=== PATIENT | female | born 1955 | race Caucasian/White ===

== ENCOUNTER 2016-05-20 20:54 | Observation (INO) | payer OTHER ==
[~2016-05-20] VITALS: Ht 172.7 cm; Wt 63.3 kg
[2016-05-20 21:49] VITALS: BP 144/82; PULSE 94; RESP 16; O2SAT 98
[2016-05-20] MEDS ORDERED: BACL10TA PO (21:56)
[2016-05-20] MEDS ORDERED: PRAV10TA2 PO (21:56)
[2016-05-20] MEDS ORDERED: DIAZ2TAB2 PO (21:56)
[2016-05-20] MEDS ORDERED: DALF10TA PO (21:56)
[2016-05-20] MEDS ORDERED: CYAN500 PO (21:56)
[2016-05-20] MEDS ORDERED: PANT40TA3 PO (21:56)
[2016-05-20] MEDS ORDERED: FISH1CAP15 PO (21:56)
[2016-05-20] MEDS ORDERED: CHOL500051 PO (21:56)
[2016-05-20 22:23] LABS: BASOPHILS % (AUTO) 0.1 % (0-3); EOSINOPHILS % (AUTO) 0.1 % (0-5); MONOCYTES % (AUTO) 6.2 % (4-12); Mean Corpuscular Hemoglobin 28.9 pg (27.0-35.0); NEUTROPHILS % (AUTO) 86.3 % (40-74); Platelet Count 235 bil/L (150-400)
[2016-05-20] MEDS ORDERED: Ondansetron 2 mg/mL 2 mL Inj IVPUSH PRN (23:10)
[2016-05-20] MEDS ORDERED: HYDROmorphone 0.5 mg/0.5 mL iSecure Syringe IVPUSH PRN (23:10)
--- NOTE | 2016-05-20 23:15 | ED.REPORT ---
HPI-Abd Pain F 40 and Over Date of Service May 20, 2016 ED Provider: Calixto Xiong MD Pt is a 60 y.o. female with a hx of MS who presents to the ED c/o RLQ pain rated 8/10 onset yesterday. Pt states that the pain radiates to her back and is exacerbated by movement. Associated fever (100F). She denies nausea and vomiting. Pt also denies a hx of abdominal surgery or diverticulitis. Nursing Notes Stated Complaint: ABDOMINAL/BACK PAIN Chief Complaint: Female Abdominal Pain Nursing Notes Reviewed: Yes Allergies: Coded Allergies: TAPE (Verified Allergy, Mild, 05/20/16) Sulfa (Sulfonamide Antibiotics) (Verified Allergy, Unknown, 05/20/16) latex (Verified Allergy, Unknown, 05/20/16) Scheduled Baclofen (Baclofen) 10 Mg Tablet 10 MG PO 5XD Cyanocobalamin (Vitamin B12) 500 Mcg Tablet 1,000 MCG PO DAILY Dalfampridine (Ampyra) 10 Mg Tablet 10 MG PO BID Pantoprazole DR (Pantoprazole DR) 40 Mg Tablet.dr 40 MG PO DAILY Pravastatin (Pravastatin) 10 Mg Tablet 10 MG PO HS Scheduled PRN Diazepam (Diazepam) 2 Mg Tablet 4 MG PO HS PRN PRN For Anxiety Miscellaneous Medications Cholecalciferol (Vitamin D3) (Vitamin D) 5,000 Unit Capsule 5,000 UNIT PO Fish Oil/Dha/Epa (Fish Oil 1,200 mg Fish Oil) 1 Each Capsule 1 EACH PO General Time Seen by MD: 22:50 Chief Complaint Abdominal pain Hx Obtained From: Patient Arrived By: Walk-in Sudden in Onset?: Yes Onset Occurred: Yesterday Symptom Duration: Since onset Location: : RLQ Quality: Painful Radiation: : Back Severity: Current: Pain level 8 out of 10 Past Medical History Past Medical History MS Past Surgical History Uterine Ablation Fibroids Lumpectomy Reports: Tonsillectomy Social History Other Social History: Ambulatory Status Independent Review of Systems Constitutional: Reports: Fever (100F) GI: Reports: Abdominal pain, Denies: Nausea, Vomiting Musculoskeletal: Reports: Back pain Complete sys rev & neg: except as marked. Neurologic: Reports: Problem walking (due to pain) Physical Exam Vital Signs Vital Signs (First) Date Time Temp Pulse Resp B/P Pulse Ox O2 Delivery O2 Flow Rate FiO2 05/20/16 21:49 36.7 94 16 144/82 98 Room Air Initial VS: Reviewed, Vital signs normal Head / Eyes: Atraumatic, Normocephalic Extremities: Vascular intact, Neuro intact Skin: Warm, Dry, No cyanosis Neurologic: Alert, Oriented, Nonfocal Psychiatric: Mood/affect normal, Behavior normal, Normal thought content General/Constitutional: Awake, Alert, No acute distress, Well appearing, Well developed, Well hydrated, Well nourished, Not toxic appearing Respiratory / Chest: Atraumatic, Breath sounds NL, Breath sounds = bilat, No respiratory distress Cardiovascular: Heart rate NL, Regular rhythm, Heart sounds NL, Peripheral circulation NL Abdomen: Atraumatic, Soft Tenderness/Guarding/Rebound: Positive: Guarding involuntary, McBurney's point tender, Rebound diffuse, Tender RLQ... Back: Atraumatic Interpretation & Diagnostics Lab Results Interpretation Result Diagram: 05/20/165 05/20/16 2215 Test 05/20/16 22:15 05/20/16 23:06 White Blood Count 16.1th/mm3 (3.8-10.1) Red Blood Count 5.01mil/mm3 (3.90-5.20) Hemoglobin 14.5g/dL (12.0-15.6) Hematocrit 43.1% (35.0-46.0) Mean Corpuscular Volume 86.0fL (81-100) Mean Corpuscular Hemoglobin 28.9pg (27.0-35.0) Mean Corpuscular Hemoglobin Concent 33.6% (32.0-37.0) Red Cell Distribution Width 12.6% (12.3-15.4) Platelet Count 235bil/L (150-400) Neutrophils (%) (Auto) 86.3% (40-74) Lymphocytes (%) (Auto) 7.0% (14-46) Monocytes (%) (Auto) 6.2% (4-12) Eosinophils (%) (Auto) 0.1% (0-5) Basophils (%) (Auto) 0.1% (0-3) Sodium Level 140mEq/L (134-144) Potassium Level 4.2mEq/L (3.5-5.2) Chloride Level 100mEq/L (97-108) Carbon Dioxide Level 23mmol/L (18-29) Blood Urea Nitrogen 12mg/dL (6-24) Creatinine 0.71mg/dL (0.57-1.00) Estimat Glomerular Filtration Rate 121mL/min (>59) Glucose Level 129mg/dL (60-99) Calcium Level 9.6mg/dL (8.5-10.1) Magnesium Level 2.0mg/dL (1.6-2.6) Total Bilirubin 0.8mg/dL (0.0-1.2) Aspartate Amino Transf (AST/SGOT) 18U/L (0-50) Alanine Aminotransferase (ALT/SGPT) 28U/L (0-32) Alkaline Phosphatase 75U/L (25-150) Total Protein 7.3g/dL (6.4-8.4) Albumin 4.9g/dL (3.4-5.0) Lipase 19U/L (13-60) Hold Tillman Top Tube Received (Received) Hold Urine Received (Received) Lab Results Interpretation: Elevated white blood count CT Abd / Pelvis Interpretation CONCLUSION: Acute appendicitis ,with no intra-abdominal abscess or perforation. Radiologist: Emile Segal MD Re-Eval/Medical Decision Med Decision/Clinical Course 60-year-old female with a classic story for appendicitis found to have acute appendicitis on CT scan without complication. Source of Hx: Old records Re-Evaluation/Progress : Time of Eval: 00:05 Re-Evaluation/Progress Note: Pt rechecked. Pt is complaining of left leg cramping ivan to her MS. Will administer Valium. Discussed plan for admit, pt udnerstands and agrees with plan. Consultation : Referral / Consult Name: Mc Garcia MD Consulted With: Surgeon Call Returned at: 00:00 Note: Discussed pt condition. Recommends pt be NPO after midnight and started on abx. Accepts admit. Counseled Regarding: Diagnosis, Need for admission Discharge & Departure Primary Impression: Acute appendicitis Disposition: ADMITTED TO HOSPITAL Discharge Condition All VS Reviewed: Yes Condition: Improved Referrals: Vanda Meehan MD (PCP) Jorge Luis Attestation Portions of this note were transcribed by Jose Spencer. I, Dr. Xiong personally performed the history, physical exam and medical decision-making; I reviewed and confirmed the accuracy of the information in the transcribed note. Signed by: Jorge Luis Muniz, 05/21/16 and 0010. copies to: Vanda Meehan MD, Calixto Bahena MD May 20, 2016 23:14 JOSE SPENCER May 20, 2016 23:25
[2016-05-21] VITALS (12 sets, daily range): BP systolic 97–129; BP diastolic 51–75; PULSE 50–89; RESP 7–20; O2SAT 95–100
[2016-05-21] MEDS ORDERED: Piperacillin-Tazo 3.375 Gm Inj 3.375 GM in Dextrose 5% Minibag Plus 50 ML IV ONE ×2 (00:05→13:40)
[2016-05-21] MEDS ORDERED: Rocuronium 10 mg/mL 5 mL Inj ONE (00:27)
[2016-05-21] MEDS ORDERED: Propofol 10,000 mCg/mL 20 mL Inj ONE (00:27)
[2016-05-21] MEDS ORDERED: Dexamethasone 4 mg/mL Inj ONE (00:27)
[2016-05-21] MEDS ORDERED: fentaNYL-PF 50 mCg/mL 2 mL Inj ONE (00:27)
[2016-05-21] MEDS ORDERED: MetoCLOpramide 5 mg/mL 2 mL Inj ONE (00:27)
[2016-05-21] MEDS: HYDROmorphone 0.5 mg/0.5 mL iSecure Syringe IVPUSH PRN ×4 (02:10→15:44)
--- NOTE | 2016-05-21 03:34 | NUR ---
Admit Pt admitted from ER to [facility] Rm 1006 at 0020. Pt alert and oriented x4, SHIRLEY, pt reported that earlier she had intense left leg spasms and she was unable to move her left leg. This is related to her MS. Pt initially reported minimal aching pain to right abdomen 2/10 and then pain increased to 4/10 and pt was given 0.5mg IV Dilaudid. On reassessment, pt sleeping and appears comfortable. Zosyn hung per orders. Pt is NPO. Pt oriented to room and call light.
--- NOTE | 2016-05-21 05:28 | NUR ---
Pain Pt reporting 4/10 pain this morning and requested half of the dose of IV Dilaudid given earlier. Pt given 0.25mg IV Dilaudid. Pt did get up to the BR with SBA to urinate and is having some weakness in legs due to MS. Addendum: 05/21/16 at 0734 by DESIREE MCCAULEY RN Meds Call made to MD this morning to order MS medications, Ampyra and Baclofen (see med rec). Using pt own Ampyra, verified with pharmacy. to take other meds home.
[2016-05-21] MEDS ORDERED: BACL20TA PO (06:21)
[2016-05-21] MEDS: AMPYRA 10 MG PO SCH ×2 (06:51→19:31)
[2016-05-21] MEDS: Dextrose 5% Lactated Ringer's 1,000 ML IV SCH ×3 (06:53→23:01)
[2016-05-21] MEDS: Ondansetron 2 mg/mL 2 mL Inj IVPUSH PRN ×2 (07:45→17:17)
--- NOTE | 2016-05-21 08:04 | DRSVH ---
PROCEDURE: CT ABDOMEN AND PELVIS WITH CONTRAST ([id number]) INDICATIONS: RLQ abd pain, elev WBC TECHNIQUE: After the administration of intravenous contrast, 5 mm thick sections acquired from the diaphragm to the symphysis. 5 mm coronal and sagittal reformats were acquired. For radiation dose reduction, the following was used: automated exposure control, adjustment of mA and/or kV according to patient siz e. COMPARISON: None. FINDINGS: Image quality: Excellent. ABDOMEN: Lung bases: Lung bases are clear. Heart size is normal. Solid organs: Liver and spleen are normal in size and enhancement. Gallbladder is within normal yung its. Biliary system is non dilated. Pancreas enhances normally. No adrenal nodules. Kidneys demon strate normal size and enhancement, without hydronephrosis. Peritoneum and bowel: Bowel loops demonstrate normal wall thickness and caliber. No free fluid or a ir. The appendix is enlarged 1.1 cm in diameter. Inflammatory changes and free fluid noted adjacent t o the appendix. No appendicolith identified. No periappendiceal abscess or free air. Nodes and vessels: No retroperitoneal or mesenteric adenopathy by size criteria. Aorta and inferior vena cava are normal in size. Scattered atherosclerotic ossification is noted in the abdominal and p elvic vasculature. Miscellaneous: No ventral hernias. PELVIS: Genitourinary: Bladder wall thickness is normal. Miscellaneous: No inguinal hernias or adenopathy. Bones: No suspicious bony lesions. No vertebral body compression fractures. Spine degenerative disc disease facet arthropathy are noted. IMPRESSION: Findings compatible with acute appendicitis. Dictated by: Piedad Francisco MD, PhD on 05/21/2016 at 8:01 Approved by: Piedad Francisco MD, PhD on 05/21/2016 at 8:02
--- NOTE | 2016-05-21 09:24 | HP ---
[address] [address] HISTORY AND PHYSICAL PATIENT: REBECCA BRUNO : 1955 MR#: [id number] ADMIT: 05/21/2016 JOB ID: [id number] CHIEF COMPLAINT: A 60-year-old lady with appendicitis seen in consultation at the request of Calixto Xiong MD and Mc Garcia MD. HISTORY OF PRESENT ILLNESS: The patient is a 60-year-old lady who presented to the emergency department last night with abdominal pain that was progressively getting worse over the last day. She woke up with pain at around 3 o'clock in the morning which was initially like a dull ache but just kept getting worse and she also had a low-grade fever. She did not have any nausea or vomiting. In the emergency department, she was evaluated with blood counts and a CT scan and was diagnosed with appendicitis and was admitted with IV antibiotics. At the time I saw her this morning, she has no abdominal pain unless with movement or palpation. OTHER MEDICAL PROBLEMS: Multiple sclerosis. PRIOR OPERATIONS: 1. Uterine ablation. 2. Laparoscopic resection of uterine fibroid. 3. Breast lumpectomy. 4. Tonsillectomy. SOCIAL HISTORY: She does not smoke. She is . 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 FAMILY HISTORY: No family history of cancer. Father had heart disease. REVIEW OF SYSTEMS: Twelve point review of systems negative other than the pertinent positives noted in the history of present illness and other medical problems. MEDICATIONS AT HOME: 1. Baclofen. 2. Pantoprazole. 3. Pravastatin. 4. Cyanocobalamin. 5. Diazepam p.r.n. ALLERGIES: Allergic to SULFA, TAPE and LATEX. INVESTIGATIONS: Labs from May 20, 2016: WBC 16.1, hemoglobin 14.5, platelet count 235. Creatinine 0.71. Glucose 129. Normal liver function studies. Albumin 4.9. IMAGING: CT abdomen and pelvis with contrast on May 20, 2016 showed appendix enlarged to 1.1 cm with inflammatory changes and free fluid adjacent to the appendix. No obvious abscess, all consistent with non perforated appendicitis. PHYSICAL EXAMINATION: A 60-year-old lady in no acute distress. BMI 21.2. Temperature 36.8, pulse 79, respiratory rate 20, blood pressure 105/66. Saturating 96% on room air. Eyes normal pupils, conjunctivae. Ears, nose, and throat normal external appearance. Neck: No lymphadenopathy or jugular venous distention. Respiratory: Normal effort, clear to auscultation. Cardiovascular: Regular rate and rhythm. Gastrointestinal: Focally tender in the right lower quadrant. Normal strength in extremities. Neurologic: No focal deficits. Psych: Alert, appropriate. Skin: Normal. ASSESSMENT AND PLAN: Acute appendicitis. Discussed the pathophysiology and treatment rationale and recommended continuing IV Zosyn and performing a laparoscopic appendectomy. After discussing the risks, benefits, and alternatives, she wished to proceed and we will proceed later today. YANIV
--- NOTE | 2016-05-21 13:10 | PCM.HPANE ---
Patient Data Surgeon Admitting Provider:Mc Garcia MD Attending Provider:Mc Garcia MD Primary Care Physician:Vanda Meehan MD Other Provider:Karma Pyle Anesthesia Reason for Visit Acute Appy Ht/WT & BMI Height (Feet): 5 Height (Inches): 8.00 Weight (Kilograms): 63.300 Body Mass Index 21.15 Allergies Coded Allergies: TAPE (Verified Allergy, Mild, 05/20/16) Sulfa (Sulfonamide Antibiotics) (Verified Allergy, Unknown, 05/20/16) latex (Verified Allergy, Unknown, 05/20/16) Past Anesthesia History Anesthesia History: Denies:: Anesthesia Reactions Diabetes History Hx Diabetes?: No MRSA MRSA: No Medications Reported Medications Baclofen 20 Mg [id number] Mg PO HS Ref 0 05/21/16 Fish Oil/Dha/Epa (Fish Oil 1,200 mg Fish Oil)1 Each Capsule1 Each PO 05/20/16 Diazepam 2 Mg Tablet4 Mg PO HS PRN For Anxiety Ref 0 05/20/16 Cyanocobalamin (Vitamin B12)500 Mcg Tablet1,000 Mcg PO DAILY 05/20/16 Cholecalciferol (Vitamin D3) (Vitamin D)5,000 Unit Capsule5,000 Unit PO 05/20/16 Dalfampridine (Ampyra)10 Mg [id number] Mg PO BID 05/20/[address] 40 Mg Tablet.dr40 Mg PO DAILY Ref 0 05/20/16 Baclofen 10 Mg [id number] Mg PO TID Ref 0 05/20/16 Pravastatin 10 Mg [id number] Mg PO HS Ref 0 05/20/16 History History of ENT Problems?: No Hx of Heart Problems?: No Cardiovascular History: Denies:: Congestive Heart Failure Hypertension Hx of Respiratory Problem?: No Respiratory History: Denies:: Tuberculosis Other Neurological Pertinent: multiple sclerosis Hx of GI Problems?: Yes Gastrointestinal History: Positive for:: Gastroesphageal Reflux Hx of Problems?: No Female Hx: Denies:: Currently Endometriosis Pelvic Inflammatory Problems with Breasts? Hx of Psycho/Social Problems?: Yes (one major panic attack) Hx Surgeries?: Yes (uterine ablation, fibroids, right lumpectomy (1978)) Hx Any Other Health Problems?: Yes Other History: Positive for:: Hospitalization Denies:: Cancer Thyroid Disease History Blood Transfusions: Positive for:: Accept Blood Products? Denies:: Blood Transfuse Reaction Blood Transfusions Hx Diabetes: No Hx Alcohol Use: NoHx Substance Use: No Stop/Bang Treated for Sleep Apnea?: No Do You Have a CPAP Machine?: No S-Snoring: Do You Snore Loudly: No T-Tired: feel tired, fatigued: Yes O-Obsered: Observed not breath: No P-Blood Pressure: treated: No B- Body Mass Index > 35 kg/m2: No A- Age over 50: Yes N- Neck Large Circumference: No G- Gender Male: No JOSE Total Score: 1 JOSE Risk Assessment: Low Risk, <3 Yes Risk Assessment Category Category 1A: Patient has history of documented sleep apnea, and HAS NOT received any narcotic, sedative or anesthesia administration during this stay. Category 1B: Patient has history of documented sleep apnea, and HAS received any narcotic , sedative or anesthesia administration during this stay Category 2: Patient has SUSPECTED Obstructive Sleep Apnea, and HAS received any narcotic , sedative or anesthesia administration during this stay. Category 3: Patient has SUSPECTED Obstructive Sleep Apnea and HAS NOT received narcotic, sedative or anesthesia administration during this stay. Category 4: Outpatient in Procedural Areas with known sleep apnea or who screen positive for High Risk via the STOP/BANG questionnaire. Exam Exam Vital Signs Vital Signs Date Time Temp Pulse Resp B/P Pulse Ox O2 Delivery O2 Flow Rate FiO2 05/21/16 11:47 36.7 65 18 97/60 97 Room Air 05/21/16 09:03 36.7 69 16 102/51 97 Room Air 05/21/16 05:12 36.8 79 20 105/66 96 Room Air General Appearance: Oriented X3 HEENT/AIRWAY: MP 2 Lungs: Normal Air Movement Heart: Regular Rate/Rhythm Meds/Labs/Diagnostics Admission Meds Current Medications Diazepam (Valium Inj) 2.5 mg ONCE ONCE IVPUSH Last administered on 05/21/16 00:08; Start 05/20/16 at 23:50; Stop 05/20/16 at 23:52; Status DC Baclofen 20 mg 20 mg ONCE ONCE PO Last administered on 05/21/16 00:08; Start 05/20/16 at 23:50; Stop 05/20/16 at 23:52; Status DC Piperacillin Sod/ Tazobactam Sod/ Dextrose/Water (Zosyn 3.375 Gm Inj/D5W Minibag Plus) 50 ml @ 100 mls/hr ONCE ONCE IV Last administered on 05/21/16 01:37; Start 05/21/16 at 00:05; Stop 05/21/16 at 00:34; Status DC Diazepam 2.5 mg 2.5 mg ONCE ONCE IVPUSH Last administered on 05/21/16 01:09; Start 05/21/16 at 00:35; Stop 05/21/16 at 00:36; Status DC Dextrose/Lactated Ringer's (D5 Lactated Ringer's) 1,000 ml @ 80 mls/hr [id number] IV Last administered on 05/21/16 06:53; Start 05/21/16 at 06:40 Baclofen (Lioresal) 10 mg 07,13,18 PO Last administered on 05/21/16 06:52; Start 05/21/16 at 07:00 Patient Own Medication (Patient's Own -> Oral Medication) 1 ea 07,19 PO Last administered on 05/21/16 06:51; Start 05/21/16 at 07:00 Labs Test 05/20/16 22:15 05/20/16 23:06 White Blood Count 16.1th/mm3 (3.8-10.1) Red Blood Count 5.01mil/mm3 (3.90-5.20) Hemoglobin 14.5g/dL (12.0-15.6) Hematocrit 43.1% (35.0-46.0) Mean Corpuscular Volume 86.0fL (81-100) Mean Corpuscular Hemoglobin 28.9pg (27.0-35.0) Mean Corpuscular Hemoglobin Concent 33.6% (32.0-37.0) Red Cell Distribution Width 12.6% (12.3-15.4) Platelet Count 235bil/L (150-400) Neutrophils (%) (Auto) 86.3% (40-74) Lymphocytes (%) (Auto) 7.0% (14-46) Monocytes (%) (Auto) 6.2% (4-12) Eosinophils (%) (Auto) 0.1% (0-5) Basophils (%) (Auto) 0.1% (0-3) Sodium Level 140mEq/L (134-144) Potassium Level 4.2mEq/L (3.5-5.2) Chloride Level 100mEq/L (97-108) Carbon Dioxide Level 23mmol/L (18-29) Blood Urea Nitrogen 12mg/dL (6-24) Creatinine 0.71mg/dL (0.57-1.00) Estimat Glomerular Filtration Rate 121mL/min (>59) Glucose Level 129mg/dL (60-99) Calcium Level 9.6mg/dL (8.5-10.1) Magnesium Level 2.0mg/dL (1.6-2.6) Total Bilirubin 0.8mg/dL (0.0-1.2) Aspartate Amino Transf (AST/SGOT) 18U/L (0-50) Alanine Aminotransferase (ALT/SGPT) 28U/L (0-32) Alkaline Phosphatase 75U/L (25-150) Total Protein 7.3g/dL (6.4-8.4) Albumin 4.9g/dL (3.4-5.0) Lipase 19U/L (13-60) Hold Tillman Top Tube Received (Received) Hold Urine Received (Received) Plan Impression Patient chart reviewed, patient interviewed and anesthestic plan with risks, benefits, and alternatives discussed, and informed consent obtained. ASA Physical Status: ASA3 Severe Disease Anesthetic Plan: GA Bene/Risks/Altern/Consents: Yes HP Complete Prior to Induction: Yes Bob Hernandez MD May 21, 2016 13:10
--- NOTE | 2016-05-21 13:21 | NUR ---
To OR Pt to OR at 1300. Pain well controlled per pt. Helped to void prior to transport and assessed for nausea which pt denied. Upon gurny arrival, pt reported mild nausea. WEIGHER OPERATOR aware and decision made to hold antiemetic until anesthesiologist had seen her. at bedside.
[2016-05-21] MEDS ORDERED: Lactated Ringer's 1,000 ML IV ONE (13:22)
[2016-05-21] MEDS ORDERED: Lactated Ringer's 500 ML IV PRN (13:34)
[2016-05-21] MEDS ORDERED: Lactated Ringer's 1,000 ML IV SCH (13:34)
[2016-05-21] MEDS ORDERED: EPHEDrine Sulfate 50 mg/mL Inj IVPUSH PRN (13:35)
[2016-05-21] MEDS ORDERED: MetoCLOpramide 5 mg/mL 2 mL Inj IVPUSH PRN (13:35)
[2016-05-21] MEDS ORDERED: Dexamethasone 4 mg/mL Inj IVPUSH PRN (13:35)
[2016-05-21] MEDS ORDERED: fentaNYL-PF 50 mCg/mL 2 mL Inj IVPUSH PRN (13:35)
[2016-05-21] MEDS ORDERED: Ondansetron 2 mg/mL 2 mL Inj IVPUSH PRN (13:35)
[2016-05-21] MEDS ORDERED: Phenylephrine 10,000 mCg/mL Inj IVPUSH PRN (13:35)
[2016-05-21] MEDS ORDERED: Bupivacaine 0.5% 50 mL Inj INFILTRATE ONE (13:48)
--- NOTE | 2016-05-21 13:54 | NUR ---
Social Work-attempted assessment: Data:EMR Reviewed. Pt is a 60 y/o female who was admitted on 05/21/16 for acute appy per H&P. Pt's insurance is [employer] and PCP is Vanda Meehan MD. SW attempted to see pt, but pt currently in the OR. SW to follow up post surgery to discuss discharge planning and complete advanced directive. SW will continue to follow. Assessment:Pt who is independent at baseline. Plan:Pt currently in the OR. SW to follow up tomorrow with pt to discuss discharge planning and complete advanced directive. SW will continue to follow. BRYCE Lopez
--- NOTE | 2016-05-21 14:27 | PCM.SURGPO ---
Immediate Operative Note Date of Surgery: May 21, 2016 Pre Operative Diagnosis Appendicitis Post Operative Diagnosis Appendicitis Procedure Laparoscopic Appendectomy Surgeon and Mold Finisher Surgeon: Mc Garcia MD Assistants: None Findings Non perforated Appendicitis Complications There were no periprocedural complications identified. Surgical Specimen Removed: Yes Specimen sent to Pathology: Yes Anesthetic Administered: GA Grafts, Implants: None Output, Estimated Blood Loss: 0 Blood Admin during surgery: No Attending Statement Dental Laboratory Manager listed was medically necessary for the successful completion of the case Yulisa Ochoa MD May 21, 2016 14:27
[2016-05-21] MEDS: HYDROmorphone 1 mg/mL Inj IVPUSH PRN ×2 (15:13→15:17)
--- NOTE | 2016-05-21 15:18 | PCM.ANEP2 ---
Post Anesthesia Evaluation ASA/CMS Post Anesthesia VS in Patient's Normal Range?: Yes Resp Stable; Airway Patent?: Yes CV Function & Hydration Stable: Yes Mental Status Recovered?: Yes Pain control Satisfactory?: Yes N/V Control Satisfactory?: Yes Bob Hernandez MD May 21, 2016 15:18
--- NOTE | 2016-05-21 15:18 | PCM.ANEP1 ---
Post Anesthesia Phase 1 PACU Phase 1 Assessment Date of Service: May 21, 2016 Vital Signs Vital Signs Date Time Temp Pulse Resp B/P Pulse Ox O2 Delivery O2 Flow Rate FiO2 05/21/16 15:06 58 10 124/70 97 Room Air 05/21/16 14:56 63 10 109/59 100 Simple Mask 10 05/21/16 14:50 50 9 115/64 100 Simple Mask 10 05/21/16 14:45 50 9 112/62 100 Simple Mask 10 05/21/16 14:38 37 52 8 112/53 100 Simple Mask 10 05/21/16 11:47 36.7 65 18 97/60 97 Room Air 05/21/16 09:03 36.7 69 16 102/51 97 Room Air Anesthetic Administered: GA Level of Alertness: Awake, talking Pain: No Pain Scale Score: 6 Nausea or Vomiting: No Oxygen Delivery: Room Air Lungs: Normal Air Movement Bob Hernandez MD May 21, 2016 15:18
--- NOTE | 2016-05-21 15:52 | OP ---
[address] [address] OPERATIVE REPORT PATIENT: REBECCA BRUNO : 1955 MR#: [id number] ADMIT: 05/21/2016 JOB ID: [id number] DATE OF SURGERY: 05/21/2016 PREOPERATIVE DIAGNOSIS(ES): Acute appendicitis. POSTOPERATIVE DIAGNOSIS(ES): 1. Acute non perforated appendicitis. 2. Free intra-abdominal body. SURGEON: Yulisa Ochoa MD. BLOCK CUTTER: Mandy Webb PA-C PROCEDURE PERFORMED: Laparoscopic appendectomy and excision of free intra-abdominal body. INDICATIONS: The patient is a 60-year-old lady who presents to our emergency department with 24 hours of abdominal pain and was found to have a white count of 16,[address] scan consistent with acute appendicitis and she was started on piperacillin and tazobactam, and after discussing the risks, benefits, and alternatives, she is here today for laparoscopic appendectomy. PROCEDURE DETAILS: She was placed in supine position. Underwent smooth induction of general anesthesia, had a Kwogn catheter placed. Abdomen was prepped and draped in the usual sterile fashion. Surgical time-out was undertaken using safety checklist, and all were in agreement. I began by making an infraumbilical incision in her old laparoscopic incision, entered the abdomen using combination of an Optiview trocar and open Koffi technique. Obtained pneumoperitoneum and then upsized to a 12 mm. I then placed two 5 mm ports under direct vision in the suprapubic location and left lower quadrant. I then identified the appendix which was obviously inflamed but not perforated. I divided the mesoappendix carefully with electrocautery with good hemostasis close to the appendix, and after getting down to the base of the appendix on the cecum, transected the base with a 45 mm Endo-RAQUEL stapler. After that I removed the appendix through the umbilical port site and suctioned all the fluid in the pelvis and the right lower quadrant free and evacuated the pneumoperitoneum and removed the ports and closed the umbilical port fascia with [id number] 0-Vicryl suture. Irrigated the umbilical wound and closed the incisions with 4-0 Monocryl subcuticular suture. Then Dermabond was applied as a dressing. Kwong catheter was removed. The patient was recovered from anesthesia and was taken to the recovery room in stable condition.
[2016-05-21] MEDS ORDERED: HYDROmorphone 0.5 mg/0.5 mL iSecure Syringe IVPUSH PRN (16:15)
--- NOTE | 2016-05-21 18:34 | NUR ---
Return from OR Pt returned to room 1006 at 1345, alert and oriented but drowsy. 3 lap sites with duoderm and no drainage. Nausea relieved by Zofran. K pad given for muscle tightness. at bedside.
[2016-05-22 00:11] VITALS: BP 120/69; PULSE 63; RESP 18; O2SAT 99
[2016-05-22 04:55] VITALS: BP 101/62; PULSE 61; RESP 18; O2SAT 97
--- NOTE | 2016-05-22 04:55 | NUR ---
MUSCLES/URINATION PT CONTINUED TO HAVE LEFT LEG RIGIDITY R/T MS. BACLOFEN NOT EFFECTIVE, REQUESTED VALIUM. GIVEN 1X DOSE OF VALIUM 4MG WITH + EFFECTS. PT WAS CONCERNED SHE HAD NOT URINATED DURING SHIFT, BLADDER SCAN DONE AT 140ML. PT ABLE TO URINATE 650ML BEFORE END OF SHIFT AND ANXIETY WAS RELIEVED PX CONTROLLED WITH MOTRIN
[2016-05-22] MEDS: AMPYRA 10 MG PO SCH (07:22)
[2016-05-22 09:23] VITALS: BP 103/63; PULSE 76; RESP 16; O2SAT 100
--- NOTE | 2016-05-22 11:15 | NUR ---
Social Work- Assessment and Readiness for Discharge Data: EMR reviewed. Pt is on day 1 of hospitalization for acute appy per H&P. Pt's insurance is [employer] [facility] and PCP is Vanda Meehan. SW met with pt's Kehinde ([phone]) at bedside, pt was asleep and did not wake during conversation. Pt resides with at home in [place] where she remains independent with ADLs. Pt uses no DME, drives. Pt has no DPOA on file, SW encouraged pt's to bring paperwork to the hospital. states he is DPOA. Pt to discharge home with to transport via POV. No anticipated discharge needs. SW will continue to follow. Assessment: [place]. Plan: Pt to discharge home with to transport via POV. No anticipated discharge needs. SW will continue to follow. BRYCE Taylor
--- NOTE | 2016-05-22 11:28 | PCM.DISURG ---
Surgical Discharge Instruction Date of Service May 22, 2016 Dates of Hospitalization Date of Hospital Admission May 21, 2016 at 00:26 Providers Admitting Physician: Mc Garcia MD Primary Care Physician: Vanda Meehan MD Attending Physician: Mc Garcia MD Discharge Diagnosis Post Operative diagnosis Appendicitis Diet Discharge Diet: No restrictions Activity Discharge Activity-General: Be up and about, No lifting >15 pounds for 2 weeks Dressing and Incisional Care Hygiene: May shower, DO NOT soak incision under water Follow Up Plan Follow-up Provider (F9): Yulisa Ochoa MD Follow-up appointment: Weeks (2) Call your provider for: Fever, Chills, Increasing abdominal pain, Nausea, Vomiting, Wound redness, Increasing wound pain, Warmth to touch, Discharge @ incision, pus discharge Yulisa Ochoa MD May 22, 2016 11:27
--- NOTE | 2016-05-22 11:51 | NUR ---
Social Work- Discharge Data: EMR reviewed. Pt is on day 1 of hospitalization for acute appy per H&P. Pt to discharge today. Pt to discharge home with to transport via POV. No discharge needs. Assessment: [place]. Plan: Pt to discharge home with to transport via POV. No discharge needs. BRYCE Taylor
--- NOTE | 2016-05-22 12:48 | NUR ---
Discharge Pt DC home with . Pain is well controlled requiring no medication and mobility has improved to baseline. VSS. All instructions given to pt and questions answered. She is eager to be home in her own environment.
--- NOTE | 2016-05-23 12:23 | PCM.DC.SUR ---
Discharge Summary Date of Service: Date of Hospital Admission: May 21, 2016 at 00:26 Date of Operation(s): 05/22/16 Date of Discharge: 05/22/16 Diagnosis at Time of Discharge Primary Diagnosis: 1. Acute non perforated appendicitis. 2. Free intra-abdominal body. Problems: Operation Laparscopic Appendectomy Brief History and Physical: The patient is a 60-year-old lady who presents to our emergency department with 24 hours of abdominal pain and was found to have a white count of 16,[address] scan consistent with acute appendicitis and she was started on piperacillin and tazobactam, and after discussing the risks, benefits, and alternatives, she is here today for laparoscopic appendectomy. Consultants: NONE Hospital Course: Please refer to [facility] for hospital course Pathology: Pending Disposition: Home Follow-up Plan: General surgery Clinic 2 weeks Baclofen (Baclofen) 10 Mg Tablet 10 MG PO TID (Reported) Baclofen (Baclofen) 20 Mg Tablet 20 MG PO HS (Reported) Cholecalciferol (Vitamin D3) (Vitamin D) 5,000 Unit Capsule 5,000 UNIT PO ( Reported) Cyanocobalamin (Vitamin B12) 500 Mcg Tablet 1,000 MCG PO DAILY (Reported) Dalfampridine (Ampyra) 10 Mg Tablet 10 MG PO BID (Reported) Diazepam (Diazepam) 2 Mg Tablet 4 MG PO HS PRN PRN For Anxiety (Reported) Fish Oil/Dha/Epa (Fish Oil 1,200 mg Fish Oil) 1 Each Capsule 1 EACH PO (Reported ) Pantoprazole DR (Pantoprazole DR) 40 Mg Tablet.dr 40 MG PO DAILY (Reported) Pravastatin (Pravastatin) 10 Mg Tablet 10 MG PO HS (Reported) copies to: Vanda Meehan MD, Sherri L PA-C May 23, 2016 12:23
--- NOTE | 2016-05-23 15:36 | PATH ---
SURGICAL PATHOLOGY Attending Physician:Yulisa Ochoa MD CASE STATUS: Signed Out PATIENT NAME: REBECCA BRUNO PID: [id number] : 1955 DATE COLLECTED:05/21/2016 00:00 SPECIMEN: 1: Appendix 2: Peritoneum, Biopsy or Resection CLINICAL HISTORY: ACUTE APPENDIX 1). APPENDIX 2). FREE PERITONEAL MASS FINAL DIAGNOSIS: 1.APPENDIX: ACUTE APPENDICITIS. 2.SPECIMEN DESIGNATED FREE PERITONEAL MASS: ADIPOSE TISSUE WITH A CONFIGURATION SUGGESTIVE OF APPENDIX EPIPLOICA. PARTIAL NECROSIS AND MULTIFOCAL AREAS OF CALCIFICATION. NEGATIVE FOR MALIGNANCY. ICD10 K35.80 GROSS DESCRIPTION: The specimen is received in two formalin filled containers labeled with the patient's name. 1). The specimen is sublabeled "appendix" and consists of one cylindrical marino appendix measuring 6.0 x 1.1 x 1.1 CM. The visceral surface is light marino, smooth and glistening. There is a large amount of attached fatty tissue. Section reveals the wall to be thickened to approximately 0.2-0.3 CM in thickness the lumen contains a light pink gordon friable to semisolid material. [employer] sections are submitted in cassette 1A. 2). The specimen is sublabeled "free peritoneal mass" and consists of a light yellow marino semifirm portion of tissue which measures 1.2 x 0.7 x 0.7 CM. The specimen is inked blue. The specimen is sectioned into 4 pieces and entirely submitted in cassette 2A. 05/22/2016 [facility] MICRO DESCRIPTION: See diagnosis. ICD-9 CODES: CPT CODES: 1: 00969 2: 94629 Electronically Signed Out Ty Gibbons MD [facility] [address], [place] [address] Technical component performed at [facility], [address] [place] [address] Ave[address], [place], [address]
== END 2016-05-22 12:31 | disposition home or self-care (01) ==
LOC: SED 20:54 → OSC 05-21 00:26
PROVIDERS: ADMIT General Practice; ATTEND General Practice
DX: K35.80 Unspecified acute appendicitis (principal); G35 Multiple sclerosis
CPT/HCPCS: 36415; 44970; 74177; 80053; 83690; 83735; 85025; 96361; 96365; 96375; 96376; 99285; J1100; J1170; J2405; J2543; J2765; J3010; J3360; J7120; Q9967

== ENCOUNTER 2016-10-03 07:25 | Day surgery (SDC) | payer OTHER ==
[~2016-10-03] VITALS: Ht 171.4 cm; Wt 58.5 kg
[2016-10-03] VITALS (7 sets, daily range): BP systolic 102–129; BP diastolic 61–76; PULSE 54–73; RESP 13–16; O2SAT 94–99
[~2016-10-03 07:25] MED LIST: 0.9% Sodium Chloride 1,000 ML IV SCH; ASCO-294 PO; BACL10TA PO; CHOL500051 PO; CYAN500 PO; DALF10TA PO; DIAZ2TAB2 PO; FISH1CAP15 PO; MULT-1018 PO; PANT40TA3 PO; PRAV10TA2 PO; Sodium Chloride LOK Flush 10 mL Syringe IV PRN; fentaNYL-PF 50 mCg/mL 2 mL Inj IVPUSH PRN
[2016-10-03] MEDS ORDERED: AMAN100T PO (08:09)
--- NOTE | 2016-10-03 14:21 | ENDO ---
[address] [address] ENDOSCOPY PROCEDURE PATIENT: REBECCA BRUNO : 1955 MR#: [id number] ADMIT: 10/03/2016 JOB ID: [id number] DATE OF SERVICE: PROCEDURE: Esophagogastroduodenoscopy. INDICATION: Epigastric pain. The patient's ASA classification is two. Mallampati score is two. MEDICATIONS: Please see nurse's notes for details regarding dosage of versed and fentanyl that were given. INSTRUMENT USED: GIF H-180J. PROCEDURAL DETAILS: After informed consent was obtained, the patient was brought to the GI suite, where she was placed on oxygen via nasal cannula and monitored with continuous pulse oximeter, telemetry, and blood pressure monitoring. A time-out was performed. Then, she was placed in a left lateral decubitus position and medications were administered for sedation. A bite block was placed. The standard EGD scope was inserted through the bite block and advanced under direct visualization without difficulty to the second portion of duodenum. FINDINGS: 1. Normal-appearing duodenal bulb, first and second portion. Multiple random biopsies were obtained. 2. Normal-appearing pylorus and antrum. 3. In the gastric body, there were multiple polyps ranging in size from 5 mm to 8 mm. The appearance of these polyps was consistent with fundic gland polyps. The largest polyp was biopsied. 4. Retroflexed views in the gastric body revealed a normal-appearing cardia and fundus. 5. The GE junction was regular at 40 cm. 6. The distal esophagus appeared normal. In the mid esophagus extending to the proximal esophagus, there was scant food debris that we were able to remove with suctioning and mild irrigation. Multiple random biopsies were obtained in the mid esophagus. IMPRESSION: Scant food debris in the mid and proximal esophagus, otherwise normal exam to second portion of the duodenum. RECOMMENDATIONS: 1. Await biopsy results. 2. Proceed to colonoscopy. PROCEDURE PERFORMED: Colonoscopy. INDICATION: Right lower quadrant pain. Please see above for ASA classification, Mallampati score, and medications. INSTRUMENT USED: PCF H-190DL PREPARATION QUALITY: Good PROCEDURAL DETAILS: After completion of the EGD exam, the patient was turned and a digital rectal exam was performed which was unremarkable. The colonoscope was then inserted into the rectum and advanced under direct visualization to the terminal ileum which was identified by the presence of the ileocecal valve and villous appearing mucosa of the terminal ileum. Once the terminal ileum was reached, the colonoscope was withdrawn back into the rectum as the mucosa and lumen were examined. In the rectum, we were unable to perform retroflexion secondary to a short rectal vault. The remaining air in the rectum was removed and the colonoscope was then withdrawn. FINDINGS: 1. Normal-appearing terminal ileum. Multiple random biopsies were obtained. 2. Normal-appearing mucosa from rectum to cecum. Multiple random biopsies were obtained. IMPRESSION: Normal colonoscopy. RECOMMENDATIONS: 1. Await biopsy results. 2. Follow up in GI clinic. COMPLICATIONS: None. ESTIMATED BLOOD LOSS: Less than 5 mL MTDD
--- NOTE | 2016-10-07 15:26 | PATH ---
SURGICAL PATHOLOGY Attending Physician:Mali Knutson CASE STATUS: Signed Out PATIENT NAME: REBECCA BRUNO PID: [id number] : 1955 DATE COLLECTED:10/03/2016 17:16 SPECIMEN: 1: Duodenum, Biopsy 2: Gastric, Biopsy 3: Esophagus, Biopsy 4: Stomach, Polyp, Biopsy 5: Ileum, Biopsy 6: Colon, Biopsy CLINICAL HISTORY: ABDOMINAL PAIN 1). DUODENUM BIOPSY 2). GASTRIC BIOPSY (RULE OUT H.PYLORI) 3). ESOPHAGUS BIOPSY 4). GASTRIC POLYP (RULE OUT H.PYLORI) 5). TERMINAL ILEUM BIOPSY 6). RANDOM COLON BIOPSY FINAL DIAGNOSIS: 1.DUODENUM, BIOPSY: SMALL BOWEL MUCOSA WITH NO DIAGNOSTIC ABNORMALITY. Negative for active inflammation, features of sprue, dysplasia, and malignancy. 2.STOMACH, BIOPSY: ANTRAL AND BODY-TYPE MUCOSA WITH NO DIAGNOSTIC ABNORMALITY. Negative for Helicobacter organisms by immunohistochemistry. Negative for intestinal metaplasia. Negative for dysplasia and malignancy. 3.ESOPHAGUS, BIOPSY: ESOPHAGEAL CANDIDIASIS. Negative for dysplasia and malignancy. 4.STOMACH, POLYP, BIOPSY: FUNDIC GLAND POLYP. Negative for dysplasia and malignancy. 5.TERMINAL ILEUM, BIOPSY: SMALL BOWEL MUCOSA WITH NO DIAGNOSTIC ABNORMALITY. Negative for active inflammation, dysplasia, and malignancy. 6.RANDOM COLON, BIOPSIES: COLONIC MUCOSA WITH NO DIAGNOSTIC ABNORMALITY. Negative for active, chronic and microscopic colitis. Negative for dysplasia and malignancy. ICD10 B37.81 GROSS DESCRIPTION: The specimen is received in six formalin filled containers labeled with the patient's name. 1). The specimen is labeled "duodenum" and consists of 2 portions of tissue which aggregate to 0.3 x 0.3 x 0.2 CM. The specimen is entirely submitted in cassette 1A. 2). The specimen is labeled "gastric biopsy" and consists of a 0.3 x 0.2 x 0.2 CM portion of tissue which is entirely submitted in cassette 2A. 3). The specimen is labeled "esophagus" and consists of 3 tiny portions of tissue which aggregate to 0.2 x 0.2 x 0.2 CM. The specimen is entirely submitted in cassette 3A. 4). The specimen is labeled "gastric body polyp" and consists of a 0.3 x 0.3 x 0.3 CM portion of tissue which is entirely submitted in cassette 4A. 5). The specimen is labeled "terminal ileum" and consists of 2 portions of tissue which aggregate to 0.2 x 0.2 x 0.2 CM. The specimen is entirely submitted in cassette 5A. 6). The specimen is labeled "random colon" and consists of multiple portions of tissue which aggregate to 0.5 x 0.4 x 0.2 CM. The specimen is entirely submitted in cassette 6A. 10/03/2016DC MICRO DESCRIPTION: 2. An immunohistochemical stain was performed to evaluate for Helicobacter organisms and is negative. A control stain showed appropriate reactivity. 3. An Alcian blue/PAS stain was performed to evaluate for fungal organisms and highlights yeast and invasive pseudohyphae consistent with Swapna species. A control stain shows appropriate reactivity. This test was developed and its performance characteristics determined by [facility]. It has not been cleared or approved by the U. [place]. Food and Drug Administration. The FDA has determined that such clearance or approval is not necessary. This test is used for clinical purposes. It should not be regarded as investigational or for research. ICD-9 CODES: CPT CODES: 1: 09933 2: 65459, 14909 3: 20872, 49355 4: 76358 5: 74428 6: 54773 Electronically Signed Out Reina Espinoza MD [facility] [address], [place] [address] Technical component performed at [facility], [address], [place], [address]
== END 2016-10-03 23:59 | disposition home or self-care (01) ==
LOC: END 07:25
PROVIDERS: ATTEND Internal Medicine Gastroenterology
DX: K31.7 Polyp of stomach and duodenum (principal); B37.81 Candidal esophagitis; R10.31 Right lower quadrant pain; R10.13 Epigastric pain; R63.4 Abnormal weight loss; G35 Multiple sclerosis; K58.9 Irritable bowel syndrome, unspecified; Z68.1 Body mass index [BMI] 19.9 or less, adult